=== PATIENT | male | born 1985 | race Caucasian/White ===

== ENCOUNTER 2024-09-12 12:12 | Emergency (ER) | payer OTHER, SELFPAY ==
--- NOTE | ~2024-09-12 | XR_ITS ---
EXAMINATION: XR chest 2V DATE: 09/12/2024 13:03 INDICATION: Cough and fever. TECHNIQUE: Frontal and lateral views of the chest were obtained. COMPARISON: Chest 2 views 04/13/13 FINDINGS: There is no pneumonia, pleural effusion, or pneumothorax. The heart size is normal. IMPRESSION: 1. No acute cardiopulmonary disease. Reviewed, dictated and finalized at location A. [facility]
[2024-09-12 12:15] VITALS: BP 136/95; PULSE 88; RESP 17; TEMP 36.4; O2SAT 98
[2024-09-12 13:45] VITALS: O2SAT 96
[2024-09-12 14:00] LABS: Influenza A QL RT-PCR Negative (Negative); Influenza B QL RT-PCR Negative (Negative); RSV RNA, RT-PCR Negative (Negative); SARS-CoV-2 RNA PCR Negative (Negative)
[2024-09-12 14:39] VITALS: BP 122/76; PULSE 87; RESP 20; TEMP 36.6; O2SAT 98
--- NOTE | 2024-09-12 14:42 | ED.URI ---
HPI - URI/Sore Throat General Chief Complaint: Upper Respiratory Infection Stated Complaint: cough, congestion, feet pain Time Seen by Provider: 09/12/24 12:53 History of Present Illness HPI Narrative: 39-year-old male presenting with URI symptoms. States that he feels like he has been run over by a truck. He has had nasal congestion, cough, body aches for the last week. He has actually recently on domicile and has experienced numerous personal stressors in the last year. He is concerned as it is so cold out right now. Related Data Allergies Allergy/AdvReac Type Severity Reaction Status Date / Time bee venom protein (honey bee) Allergy Anaphylaxis Verified 09/12/24 12:22 [bees] Fish Containing Products Allergy Unknown Verified 09/12/24 12:22 Review of Systems Review of Systems: All systems reviewed & are unremarkable except as noted in HPI and below Exam Narrative: GENERAL: Nontoxic, somewhat disheveled, pleasant cooperative HEAD: Normocephalic, atraumatic. EYES: PERRLA and EOMI. ENT: + nasal congestion NECK: Supple. CHEST: No respiratory distress. expiratory wheezing bilaterally HEART: Regular rate and rhythm EXTREMITIES: Normal range of motion SKIN: Warm, dry, no rash. NEURO: Alert and oriented x3. PSYCH: Normal mood and affect. Course Vital Signs Vital signs: Vital Signs Temperature 97.5 F L 09/12/24 12:15 Pulse Rate 88 09/12/24 12:15 Respiratory Rate 17 09/12/24 12:15 Blood Pressure 136/95 H 09/12/24 12:15 Pulse Oximetry 98 09/12/24 12:15 Oxygen Delivery Room Air 09/12/24 12:15 Temperature 97.6 F 09/12/24 16:17 Pulse Rate 86 09/12/24 16:17 Respiratory Rate 20 09/12/24 16:17 Blood Pressure 130/74 09/12/24 16:17 Pulse Oximetry 97 09/12/24 16:17 Oxygen Delivery Room Air 09/12/24 13:45 MDM - URI/Sore Throat MDM Narrative Medical decision making narrative: 39-year-old male presenting with URI symptoms and concern about homelessness. Vital signs are within normal limits. Exam is remarkable for the above. Chest x-ray without acute abnormalities. He is negative for COVID and influenza. Will treat with Tylenol for the body aches and an inhaler for the wheezing. Will have care coordination speak with him regarding resources that he may utilize. Patient provided with resources for penitentiary as well as some extra clothing for the winter weather. He is safe for outpatient management, will provide the number for a new PCP. Appropriate return precautions given. Discharged in stable condition. Differential Diagnosis Differential diagnosis: Likely upper respiratory infection, viral infection, influenza and pharyngitis Medical Records Attestation: I reviewed the patient's medical records. Lab Data Attestation: I reviewed the patient's lab results. Labs: Lab Results 09/12/24 Range/Units 13:19 Influenza A (RT-PCR) Negative (Negative) Influenza B (RT-PCR) Negative (Negative) RSV (RT-PCR) Negative (Negative) SARS-CoV-2 RNA (RT-PCR) Negative (Negative) Imaging Data Radiologist's impression: ITS Impressions Chest X-Ray 09/12/24 13:07 IMPRESSION: 1. No acute cardiopulmonary disease. Critical Care Time Critical Care Time Critical Care Time: No Discharge Plan Discharge Clinical Impression: Upper respiratory infection, Housing instability Patient Disposition: Home, Self-Care Condition: Stable Instructions: Antibiotic Form, Viral Syndrome (ED) Additional Instructions: Please use Tylenol and ibuprofen for body aches and sore throat. Please use the nasal spray as prescribed. Please take 2-4 puffs of your inhaler every 4 hours for the next several days. Follow-up closely with primary care. If your symptoms worsen or other concerning symptoms arise, please return to the ER. Prescriptions: New acetaminophen [Tylenol Extra Strength] 500 mg tablet 1,000 mg PO Q8-10H PRN (Reason: fever or pain) Qty: 20 0RF naproxen 500 mg tablet 500 mg PO BID PRN (Reason: pain) Qty: 20 0RF fluticasone propionate [Flonase Allergy Relief] 50 mcg/actuation spray,suspension 2 spray intranasal DAILY 3 Days Qty: 16 0RF Rx Instructions: administer into each nostril Follow-up/Referrals: Janet Lozano MD [Physician] -
[2024-09-12] MEDS: ACETAMINOPHEN 500 MG TABLET 1000 MG PO (14:46)
[2024-09-12] MEDS: ALBUTEROL SULFATE (*SP) AEROSOL 1 PUFF 2 PUFF INHALATION (15:01)
[2024-09-12 16:17] VITALS: BP 130/74; PULSE 86; RESP 20; TEMP 36.4; O2SAT 97
--- NOTE | 2024-09-12 16:20 | PCCCNOTE ---
Called to the ED regarding homeless halfway resources. Pt given the list, I placed calls for [facility], but they are closed until Sunday. Pt given bus tokens and some clean warm clothes.
== END 2024-09-12 16:31 | disposition home or self-care (01) ==
PROVIDERS: Physician Assistant; Emergency Provider Emergency Medicine
DX: J06.9 Acute upper respiratory infection, unspecified (principal); Z59.819 Housing instability, housed unspecified; Z20.822 Contact with and (suspected) exposure to COVID-19
CPT/HCPCS: 71046; 87637; 94664; 99283; A9270